=== PATIENT | female | born 1995 | race Caucasian/White ===

== ENCOUNTER 2021-10-07 03:13 | Observation (INO) | payer SELFPAY ==
[2021-10-07] VITALS (16 sets, daily range): BP systolic 109–132; BP diastolic 52–80; PULSE 97–128; TEMP 36.9; BMI 43.2
--- NOTE | ~2021-10-07 | US_ITS ---
EXAMINATION: US OB follow up w [facility] DATE: 10/07/2021 08:00 INDICATION: Small for gestational age. Third trimester. TECHNIQUE: Real-time pelvic ultrasound was performed. COMPARISON: None. FINDINGS: There is a single living fetus in vertex presentation. The placenta is anterior. heart rate is 144 beats per minute (bpm). The amniotic fluid index is 8.4 cm, which is normal. The following biometric data were obtained: Biparietal diameter (BPD): 8.7 cm; head circumference (HC): 32.3 cm; abdominal circumference (AC): 32 .5 cm; femur length (FL): 6.9 cm. These measurements are concordant. Estimated weight is 2830 g +/- 425 g, which correlates with the 7th percentile when 10/12/21 is used as estimated date of delivery. As single measurements, these parameters are each equal to the following estimated gestational ages: BPD: 34 weeks 6 days. HC: 36 weeks 4 days. AC: 36 weeks 3 days. FL: 35 weeks 3 days. estimated gestational age based solely on measurements from this exam is 35 weeks 6 days +/- 2 weeks 4 days. Biophysical profile performed by the technologist: breathing (30 sec sustained breathing in 30 minutes): 2 out of 2 movement (3 gross body movements in 30 minutes): 2 out of 2 tone (one episode of [id number] limb movement): 2 out of 2 Amniotic fluid pocket (2 cm): 2 out of 2 Total score: 8 out of 8 IMPRESSION: 1. Single living fetus in vertex presentation. 2. Small for gestational age. Estimated weight is 2830 g +/- 425 g, which correlates with the 7 th percentile when 10/12/21 is used as estimated date of delivery. 3. Biophysical profile 8 out of 8. Reviewed, dictated and finalized at location A. ET SWAGING MACHINE OPERATOR IMPRESSION: 1. Single living fetus in vertex presentation. 2. Small for gestational age. Estimated weight is 2830 g +/- 425 g, which correlates with the 7th percentile when 10/12/21 is used as estimated date of d elivery. 3. Biophysical profile 8 out of 8.
[2021-10-07 04:37] LABS: Basophils Percent Auto 0.2 % (0.2-1.2); Eosinophils Absolute Auto 0.2 K/mm3 (0-0.3); Eosinophils Percent Auto 1.4 % (0-4.4); Hematocrit 29.4 % (37.0-47.0); Hemoglobin 9.4 g/dL (12.0-15.0); Immature Granulocyte Absolute 0.08 K/mm3 (0.00-0.031); Immature Granulocyte Percent A 0.8 % (0-0.5); Lymphocytes Absolute Auto 1.84 K/mm3 (0.9-3.2); Lymphocytes Percent Auto 17.6 % (18.3-44.2); Mean Corpuscular Hemoglobin 26.6 pg (26-34); Mean Corpuscular Volume 83.1 fl (80-100); Mean Platelet Volume 9.5 fl (7.4-10.4); Monocytes Absolute Auto 0.5 K/mm3 (0.1-0.6); Monocytes Percent Auto 5.2 % (2.6-8.5); Neutrophils Absolute Auto 7.8 K/mm3 (1.3-6.7); Neutrophils Percent Auto 74.8 % (45.5-73.1); Platelet Count Result 294 k/mm3 (150-375); Red Blood Count 3.54 M/mm3 (4.2-5.4); Red Cell Distribution Width 18.7 % (11.5-14.5); White Blood Count 10.5 K/mm3 (4.5-10.0)
[2021-10-07 04:46] LABS: Add Urine Microscopic? YES; Appearance Urine Cloudy (Clear); Bacteria Urine 2+ /hpf; Bilirubin Urine Negative (Negative); Blood Urine 1+ (Negative); Color Urine Yellow (Yellow); Glucose Urine UA Negative (Negative); Ketones Urine Negative (Negative); Leukocyte Esterase Ur Trace LEU/UL (NEGATIVE); Mucus Urine Rare /lpf; Nitrate Urine Positive (Negative); Protein Urine Negative (Negative); Specific Grav Ur 1.018 (1.001-1.035); Squamous Epithelial Cell Urine Many /hpf (Few); Urobilinogen Urine Negative mg/dL (<2.0); WBC Urine 31-50 /hpf (0-3)
[2021-10-07 04:51] LABS: Amphetamine Screen Urine Negative (Negative); Barbiturate Screen Urine Negative (Negative); Benzodiazepines Screen Urine Negative (Negative); Cannabinoid Screen Urine Positive (Negative); Cocaine Screen Urine Negative (Negative); Methadone Screen Urine Negative (Negative); Opiate Screen Urine Negative (Negative); Phencyclidine Screen Urine Negative (Negative)
--- NOTE | 2021-10-07 04:57 | OBADM ---
This patient, Ese Ramos, admitted to the OB room Labor/Delivery/Recovery 120 for observation. Patient/family oriented to hospital policies and general routines including ID bracelet, bed and alarms, visiting hours, pain management, procedures, bathroom and other care routines, personal items, smoking policy, room service/diet, and visiting hours. Patient/Family are encouraged to report perceived risks to care and to ask questions if they do not understand what they are told or what they should do.
[2021-10-07 04:59] LABS: Alanine Aminotransferase 20 U/L (4-35); Albumin Level 3.5 g/dL (3.5-5.1); Alkaline Phosphatase 117 U/L (38-126); Anion Gap 5 mmol/L (8-16); Aspartate Amino Transferase 21 U/L (14-36); Bilirubin,Total 0.7 mg/dL (0.2-1.3); Blood Urea Nitrogen 8 mg/dL (7-17); Calcium 8.9 mg/dL (8.4-10.2); Carbon Dioxide 25 mmol/L (22-30); Chloride 104 mmol/L (98-107); Estimated Glomerular Filt Rate > 60; Glucose 136 mg/dL (65-110); Potassium 3.2 mmol/L (3.4-5.0); Sodium 134 mmol/L (137-145); Uric Acid 5.4 mg/dL (2.5-7.5)
[2021-10-07 05:30] LABS: HIV 1/2 Ab P24 Ag Result Negative (Negative)
[2021-10-07 05:44] LABS: Hepatitis B Surface Antigen Negative (Negative); Rubella IgG Antibody 1.8 IU/ML
[2021-10-07] MEDS: NITROFURANTOIN MONOHYD MACROCR 100 MG CAP PO (08:45)
[2021-10-07 08:52] LABS: Rapid Plasma Reagin Non-Reactive (NonReactive)
--- NOTE | 2021-10-07 09:15 | PC.NURSE ---
0915- Patient ambulated off unit to waiting [facility] truck.
--- NOTE | 2021-10-07 09:44 | PC.NURSE ---
Patient questioned multiple times about care. Patient gave a Pressure Tester by the name of Mary Julio at the [facility] in [place], [place], but stated she would be delivering at [facility] with [facility]. She states she had a section scheduled for last Thursday but has been in this area since September 20 for her Grandpas . Upon calling the hospital patient stated, they have no record of patient/scheduled section. Also attempted to find information about the [facility] that patient states she has been to, but nothing can be found. Questioned patient and informed her that no information could be found at either of these places. She states that shes afraid this would happen. Questioned if patient is safe where she is and if she is a victim of trafficking. Patient states that she is safe and is not a victim of trafficking. Patient cannot produce any ID, she state she was dropped off by her mother, whose phone she currently has and that she is waiting downstairs for her. Patient also states that she is leaving to make the [address] home to [place], [place] on thursday and planned to follow up with her doctor on Thursday.
[2021-10-08 01:18] LABS: Creatinine Urine 136.7 mg/dL; Total Protein Urine Random 14 mg/dL
--- NOTE | 2021-10-08 17:34 | PM.OBTRLD ---
OB - Triage/Final Diagnosis Visit Information Comments/Additional reasons for admission: I have assessed the risk for this patient, Ese Ramos, and determined that she would benefit from observation care. Evaluation Laboratory results: Laboratory Tests 10/07/21 10/07/21 10/07/21 04:18 04:18 04:19 WBC 10.5 H RBC 3.54 L Hgb 9.4 L Hct 29.4 L MCV 83.1 MCH 26.6 MCHC 32.0 RDW 18.7 H Plt Count 294 MPV 9.5 Immature Gran % (Auto) 0.8 H Neut % (Auto) 74.8 H Lymph % (Auto) 17.6 L Divide % (Auto) 5.2 Eos % (Auto) 1.4 Baso % (Auto) 0.2 Lymph # (Auto) 1.84 Divide # (Auto) 0.5 Eos # (Auto) 0.2 Baso # (Auto) 0.0 Abs Immat Gran (auto) 0.08 H Absolute Neuts (auto) 7.8 H Absolute Nucleated RBC 0.0 Nucleated RBC % 0.0 Sodium Potassium Chloride Carbon Dioxide Anion Gap BUN Creatinine Estim Creat Clear Calc Estimated GFR Glucose Uric Acid Calcium Total Bilirubin AST ALT Alkaline Phosphatase Total Protein Albumin Urine Color Urine Appearance Urine pH Ur Specific Blakeslee Urine Protein Urine Glucose (UA) Urine Ketones Ur Blood (Man) Urine Nitrate Urine Bilirubin Urine Urobilinogen Ur Leukocyte Esterase Urine RBC Urine WBC Ur Squamous Epith Cells Urine Bacteria Urine Mucus U Random Total Protein Urine Creatinine Protein/Creat Ratio 2 Urine Opiates Screen Urine Methadone Screen Ur Barbiturates Screen Ur Phencyclidine Scrn Ur Amphetamine Screen U Benzodiazepines Scrn Urine Cocaine Screen U Cannabinoids Screen RPR Non-reactive Hep Bs Antigen HIV 1&2 Ab/P24 Ag 4thGn Negative Rubella IgG Antibody Blood Type Antibody Screen 10/07/21 10/07/21 10/07/21 04:19 04:20 04:20 WBC RBC Hgb Hct MCV MCH MCHC RDW Plt Count MPV Immature Gran % (Auto) Neut % (Auto) Lymph % (Auto) Divide % (Auto) Eos % (Auto) Baso % (Auto) Lymph # (Auto) Divide # (Auto) Eos # (Auto) Baso # (Auto) Abs Immat Gran (auto) Absolute Neuts (auto) Absolute Nucleated RBC Nucleated RBC % Sodium 134 L Potassium 3.2 L Chloride 104 Carbon Dioxide 25 Anion Gap 5 L BUN 8 Creatinine 0.60 L Estim Creat Clear Calc Not Reportable Estimated GFR > 60 Glucose 136 H Uric Acid 5.4 Calcium 8.9 Total Bilirubin 0.7 AST 21 ALT 20 Alkaline Phosphatase 117 Total Protein 6.0 L Albumin 3.5 Urine Color Urine Appearance Urine pH Ur Specific Blakeslee Urine Protein Urine Glucose (UA) Urine Ketones Ur Blood (Man) Urine Nitrate Urine Bilirubin Urine Urobilinogen Ur Leukocyte Esterase Urine RBC Urine WBC Ur Squamous Epith Cells Urine Bacteria Urine Mucus U Random Total Protein Urine Creatinine Protein/Creat Ratio 2 Urine Opiates Screen Urine Methadone Screen Ur Barbiturates Screen Ur Phencyclidine Scrn Ur Amphetamine Screen U Benzodiazepines Scrn Urine Cocaine Screen U Cannabinoids Screen RPR Hep Bs Antigen Negative HIV 1&2 Ab/P24 Ag 4thGn Rubella IgG Antibody 1.8 L Blood Type O Negative Antibody Screen Negative 10/07/21 10/07/21 10/07/21 04:21 04:23 04:23 WBC RBC Hgb Hct MCV MCH MCHC RDW Plt Count MPV Immature Gran % (Auto) Neut % (Auto) Lymph % (Auto) Divide % (Auto) Eos % (Auto) Baso % (Auto) Lymph # (Auto) Divide # (Auto) Eos # (Auto) Baso # (Auto) Abs Immat Gran (auto) Absolute Neuts (auto) Absolute Nucleated RBC Nucleated RBC % Sodium Potassium Chloride Carbon Dioxide Anion Gap BUN Creatinine Estim Creat Clear Calc Estimated GFR Glucose Uric Acid Calcium Tota
== END 2021-10-07 09:15 | disposition home or self-care (01) ==
PROVIDERS: Admitting Provider Obstetrics & Gynecology; Visit Provider Obstetrics & Gynecology
DX: O23.43 Unspecified infection of urinary tract in pregnancy, third trimester (principal); O26.893 Other specified pregnancy related conditions, third trimester; R10.9 Unspecified abdominal pain; Z3A.39 39 weeks gestation of pregnancy
CPT/HCPCS: 36415; 76816; 76819; 80053; 80307; 81001; 82570; 84156; 84550; 85025; 86592; 86703; 86762; 86850; 86900; 86901; 87340; A9270; G0378; G0379; G0432